=== PATIENT | male | born 1990 ===

== ENCOUNTER 2017-06-19 18:14 | Emergency (ER) | payer OTHER ==
[~2017-06-19] VITALS: Ht 180.3 cm; Wt 106.6 kg
[~2017-06-19 18:14] MED LIST: OMEPRAZOLE20 M1 PO; PREDNISONE20 MG PO; PROVENTIL HFA6.7 GM INH; ZITHROMAX250 MG PO; ZOFRAN ODT4 MG SL
[2017-06-19] MEDS ORDERED: ZANTAC 7575 MG PO (18:32)
[2017-06-19] MEDS ORDERED: TRAMADOL HCL50 MG PO (19:04)
== END 2017-06-19 19:25 | disposition home or self-care (01) ==
LOC: ED 18:14
DX: M75.21 Bicipital tendinitis, right shoulder (principal); Z79.52 Long term (current) use of systemic steroids; Z79.899 Other long term (current) drug therapy
CPT/HCPCS: 99283